=== PATIENT | male | born 1970 ===

== ENCOUNTER 2016-12-09 09:29 | Inpatient (IN) | payer OTHER ==
[2016-12-09 09:35] LABS: INR 1.5
[2016-12-09] MEDS ORDERED: Tmp-Smz 800 mg-160 mg DS Tab PO SCH (09:45)
== END 2016-12-09 11:40 | disposition home or self-care (01) | DRG 467 ==
LOC: C.7T 09:29
PROVIDERS: ADMIT Internal Medicine; ATTEND Internal Medicine
DX: Z02.89 Encounter for other administrative examinations (principal)